=== PATIENT | female | born 2000 | race Caucasian/White ===

== ENCOUNTER 2022-11-14 15:08 | Outpatient (CLI) | payer BC | END 2022-11-14 15:09 | disposition home or self-care (01) | LOC: CSHCT 15:08 | PROVIDERS: ATTEND Orthopaedic Surgery | DX: S43.004A Unspecified dislocation of right shoulder joint, initial encounter (principal); M25.511 Pain in right shoulder; Z98.890 Other specified postprocedural states; S42.291A Other displaced fracture of upper end of right humerus, initial encounter for closed fracture ==